=== PATIENT | female | born 2000 | race Caucasian/White ===

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

== ENCOUNTER 2020-01-25 16:07 | Emergency (ER) | payer OTHER ==
[2020-01-25 16:15] VITALS: BP 113/70
[2020-01-25 16:53] LABS: BILIRUBIN,URINE NEGATIVE (NEGATIVE); GLUCOSE, URINE (UA) NEGATIVE (NEGATIVE); KETONES,URINE (UA) NEGATIVE (NEGATIVE); LEUKOCYTE ESTERASE, URINE NEGATIVE (NEGATIVE); NITRITE,URINE NEGATIVE (NEGATIVE); OCCULT BLOOD,URINE NEGATIVE (NEGATIVE); PH,URINE 6.5 PH (5.0-7.5); PROTEIN,URINE NEGATIVE (NEGATIVE); UROBILINOGEN,URINE 0.2 (NORMAL) E.U./dL (NORMAL)
--- NOTE | 2020-01-25 16:54 | ED Physician Documentation ---
PD HPI FEMALE - Stated complaint Stated Complaint: FEMALE - Chief complaint Chief Complaint: Abd Pain - History obtained from History obtained from: Patient - History of Present Illness Timing - onset: How many weeks ago (2) Timing - details: Gradual onset Pain level max: 8 Pain level max: 2 Associated symptoms: Pelvic pain, Vaginal discharge. No: Fever, Urinary frequency Contributing factors: No: , control - Additional information Additional information: 20-year-old female presents to the emergency department with chief complaint of intermittent pelvic pain mostly during sexual activity. Patient denies fevers dysuria, hematuria. She is sexually active with one male partner but denies condom use. She does endorse some pelvic vaginal discharge clear to white in nature.She has an IUD in place and is unsure if she can still feel the strings. 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 HEENT: None Psych: None Musculoskeletal: None Derm: None - Past Surgical History Past Surgical History: No - Present Medications Home Medications: Ambulatory Orders Medication Instructions Recorded Confirmed Cefdinir 300 mg PO BID #20 capsule 01/06/20 - Allergies Allergies/Adverse Reactions: Allergies Allergy/AdvReac Type Severity Reaction Status Date / Time No Known Drug Allergies Allergy Verified 01/25/20 16:13 - Social History Does the pt smoke?: No Smoking Status: Former smoker Does the pt drink ETOH?: No Does the pt have substance abuse?: No - Immunizations Immunizations are current?: Yes - POLST Patient has POLST: No PD ED PE NORMAL - Female Female : Other (IUD strings seen exiting the cervix. Large amount of thin white secretions in vault. No CMT. No adnexal tenderness.) Results - Vitals Vitals: Vital Signs - 24 hr 01/25/20 16:13 Temperature 36.6 C Heart Rate 69 Respiratory 18 Rate Blood Pressure 113/70 O2 Saturation 98 Oxygen O2 Source Room air - Labs Labs: Microbiology 01/25/20 17:33 Wet Prep - Final Cervix Laboratory Tests 01/25/20 16:38 Urine Color YELLOW Urine Clarity CLEAR Urine pH 6.5 Ur Specific [place] 1.025 Urine Protein NEGATIVE Urine Glucose (UA) NEGATIVE Urine Ketones NEGATIVE Urine Occult Blood NEGATIVE Urine Nitrite NEGATIVE Urine Bilirubin NEGATIVE Urine Urobilinogen 0.2 (NORMAL) Ur Leukocyte Esterase NEGATIVE Ur Microscopic Review NOT INDICATED Urine Culture Comments NOT INDICATED Urine HCG, Qual NEGATIVE PD MEDICAL DECISION MAKING - ED course Complexity details: reviewed results, re-evaluated patient, d/w patient ED course: 20-year-old female comes to the emergency department with chief complaint of dyspareunia after sex and some vaginal discharge for the last few weeks. - Pelvic exam reveals moderate amount of thin white discharge in the vault. No cervical motion tenderness or adnexal tenderness. IUD strings are seen exiting the pelvis. - Them is not consistent with PID. However given history of unprotected sex I am electing to treat empirically for chlamydia gonorrhea here in the emergency department with ceftriaxone and azithromycin. GC is pending. Her wet prep is negative. - No pelvic pain was elicited on the bimanual pelvic exam therefore will defer imaging today. I recommended very close follow-up with a primary care provider for further evaluation. Patient was advised that she should abstain from sex for at least 1 week and her partner should be tested and treated before they resume sexual activity. Departure - Departure Disposition: 01 Home, Self Care Clinical Impression: Pelvic pain, Vaginal discharge Condition: Stable Instructions: STD Sx Women Teen Comments: [facility] your pelvic exam shows a lot of thin white vaginal discharge. I am concerned that this could be a sexually transmitted disease. Therefore we have treated you empirically today in the emergency department with ceftriaxone and azithromycin. Please a abstain from any sexual activity until your partners tested and treated.The IUD strings were seen exiting your cervix so I am not concerned about misplacement of the IUD. Please schedule close follow-up with your primary care doctor if the pain persist she may be interested in ordering a pelvic ultrasound but that is not indicated today.
[2020-01-25 16:55] LABS: CLARITY,URINE CLEAR (CLEAR); HCG UR QUAL NEGATIVE
[2020-01-25] MEDS ORDERED: LIDOCAINE 1% 2 ML VIAL MC ONE (17:35)
[2020-01-25] MEDS ORDERED: cefTRIAXone 250 MG VIAL IM STA (17:35)
[2020-01-25] MEDS ORDERED: AZITHROMYCIN 100 MG/5 ML SYRINGE PO STA (17:35)
[2020-01-25] MEDS ORDERED: AZITHROMYCIN 250 MG TABLET PO STA (17:48)
[2020-01-25 21:29] LABS: TRICHOMONAS VAGINALIS DNA NEGATIVE (NEGATIVE)
== END 2020-01-25 18:11 | disposition home or self-care (01) ==
LOC: ED 16:07
DX: R10.2 Pelvic and perineal pain (principal); N89.8 Other specified noninflammatory disorders of vagina; Z97.5 Presence of (intrauterine) contraceptive device; Z87.891 Personal history of nicotine dependence
CPT/HCPCS: 81003; 81025; 87210; 87491; 87591; 87661; 96372; 99281; 99283; A9270; 81001; 87086

== ENCOUNTER 2021-01-22 09:09 | Emergency (ER) | payer OTHER ==
[2021-01-22 09:54] LABS: BILIRUBIN,URINE NEGATIVE (NEGATIVE); GLUCOSE, URINE (UA) NEGATIVE (NEGATIVE); KETONES,URINE (UA) NEGATIVE (NEGATIVE); LEUKOCYTE ESTERASE, URINE NEGATIVE (NEGATIVE); NITRITE,URINE NEGATIVE (NEGATIVE); OCCULT BLOOD,URINE NEGATIVE (NEGATIVE); PROTEIN,URINE NEGATIVE (NEGATIVE); UROBILINOGEN,URINE 0.2 (NORMAL) E.U./dL (NORMAL)
[2021-01-22 09:56] LABS: CLARITY,URINE CLEAR (CLEAR); HCG UR QUAL NEGATIVE
[2021-01-22 10:48] LABS: BASOPHILS % (AUTO) 0.5 %; EOSINOPHILS # (AUTO) 0.3 10^3/uL (0.0-0.7); HCT - HEMATOCRIT 41.6 % (37.0-47.0); HGB - HEMOGLOBIN 14.1 g/dL (12.0-16.0); LYMPHOCYTES # (AUTO) 2.2 10^3/uL (1.5-3.5); LYMPHOCYTES % (AUTO) 25.8 %; MEAN CORPUSCULAR HEMOGLOBIN 29.9 pg (27.0-31.0); MEAN CORPUSCULAR HGB CONC 33.9 g/dL (32.0-36.0); MEAN CORPUSCULAR VOLUME 88.1 fL (81.0-99.0); MEAN PLATELET VOLUME 11.3 fL (7.9-10.8); MONOCYTES # (AUTO) 0.5 10^3/uL (0.0-1.0); MONOCYTES % (AUTO) 5.7 %; NEUTROPHILS # (AUTO) 5.6 10^3/uL (1.5-6.6); NEUTROPHILS % (AUTO) 64.7 %; PLT - PLATELET COUNT 287 10^3/uL (130-450); RED BLOOD COUNT 4.72 10^6/uL (4.20-5.40); RED CELL DISTRIBUTION WIDTH 12.4 % (12.0-15.0); WHITE BLOOD COUNT 8.6 x10^3/uL (4.8-10.8)
[2021-01-22 11:01] LABS: ALBUMIN 4.3 g/dL (3.2-5.5); ALBUMIN/GLOBULIN RATIO 1.2 (1.0-2.2); BILIRUBIN,TOTAL 0.6 mg/dL (0.2-1.0); CALCIUM 9.4 mg/dL (8.5-10.3); CREATININE 0.6 mg/dL (0.4-1.0); POTASSIUM 3.9 mmol/L (3.5-5.0); TOTAL PROTEIN 7.9 g/dL (6.7-8.2)
[2021-01-22 12:22] VITALS: BP 118/53
--- NOTE | 2021-01-22 12:27 | ED Physician Documentation ---
History of Present Illness - Stated complaint Stated Complaint: ABD PX - Chief complaint Chief Complaint: Abd Pain - Additonal information Additional information: 21-year-old female presents the emergency department for evaluation of mid abd ominal pain that woke her up at about 12:45 AM. She reports that it was cramping but nonradiating. It was severe for a few hours but went away. No fevers or vomiting. Last bowel movement yesterday and was normal for patient. Since then the pain has mostly improved though she does feel somewhat bloated. No pertinent past medical history. No pertinent past surgical history. She does smoke daily. No alcohol use. Review of Systems Constitutional: denies: Fever, Chills Eyes: reports: Reviewed and negative Ears: reports: Reviewed and negative Nose: reports: Reviewed and negative Throat: reports: Reviewed and negative Cardiac: reports: Reviewed and negative Respiratory: reports: Reviewed and negative GI: reports: Abdominal Pain, Nausea. 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 : None HEENT: None Psych: None Musculoskeletal: None Derm: None - Past Surgical History Past Surgical History: No - Present Medications Home Medications: Ambulatory Orders Medication Instructions Recorded Confirmed polyethylene glycoL 3350 [Miralax] 17 gm PO DAILY PRN #1 bottle 01/22/21 - Allergies Allergies/Adverse Reactions: Allergies Allergy/AdvReac Type Severity Reaction Status Date / Time No Known Drug Allergies Allergy Verified 01/22/21 09:27 - Social History Does the pt smoke?: No Smoking Status: Never smoker Does the pt drink ETOH?: No Does the pt have substance abuse?: No - Immunizations Immunizations are current?: Yes - POLST Patient has POLST: No PD ED PE EXPANDED - General General: Alert, No acute distress, Well developed/nourished - Cardiac Cardiac: Regular Rate, Regular Rhythm, Radial strong equal, Prolonged cap refill - Respiratory Respiratory: Clear to ausultation cierra. No: Distress, Labored - Abdomen Abdomen: Normal Bowel sounds, Other (Unable to elicit abdominal tenderness on exam. Negative Mina's negative McBurney's.). No: Tender to palpation - Derm Derm: Normal color, Warm and dry. No: Rash Results - Vitals Vitals: Vital Signs - 24 hr 01/22/21 01/22/21 09:24 12:21 Temperature 36.6 C 37.2 C Heart Rate 72 56 L Respiratory 16 16 Rate Blood Pressure 126/51 L 118/53 L O2 Saturation 98 100 Oxygen O2 Source Room air - Labs Labs: Laboratory Tests 01/22/21 01/22/21 01/22/21 09:30 10:31 10:31 WBC 8.6 RBC 4.72 Hgb 14.1 Hct 41.6 MCV 88.1 MCH 29.9 MCHC 33.9 RDW 12.4 Plt Count 287 MPV 11.3 H Neut # (Auto) 5.6 Lymph # (Auto) 2.2 [place] # (Auto) 0.5 Eos # (Auto) 0.3 Baso # (Auto) 0.0 Absolute Nucleated RBC 0.00 Nucleated RBC % 0.0 Sodium 135 Potassium 3.9 Chloride 102 Carbon Dioxide 25 Anion Gap 8.0 BUN 13 Creatinine 0.6 Estimated GFR (MDRD) 126 Glucose 89 Calcium 9.4 Total Bilirubin 0.6 AST 26 ALT 34 Alkaline Phosphatase 59 Total Protein 7.9 Albumin 4.3 Globulin 3.6 Albumin/Globulin Ratio 1.2 Lipase 23 Urine Color YELLOW Urine Clarity CLEAR Urine pH 7.0 Ur Specific [place] 1.020 Urine Protein NEGATIVE Urine Glucose (UA) NEGATIVE Urine Ketones NEGATIVE Urine Occult Blood NEGATIVE Urine Nitrite NEGATIVE Urine Bilirubin NEGATIVE Urine Urobilinogen 0.2 (NORMAL) Ur Leukocyte Esterase NEGATIVE Ur Microscopic Review NOT INDICATED Urine Culture Comments NOT INDICATED Urine HCG, Qual NEGATIVE - Rads (name of study) ABD KUB Radiology: Final report received PD MEDICAL DECISION MAKING - ED course Complexity details: reviewed results, re-evaluated patient, considered differential, d/w patient ED course: This is a very well-appearing 21-year-old female that presented to the emergency department for evaluation of mid abdominal pain that was cramping like and lasted for several hours early in the a.m. At this time she is free of abdominal pain. Screening labs show no significant abnormality. No leukocytosis no findings of infection in the urine and unremarkable liver function tests. On physical exam I was unable to elicit any abdominal tenderness. Certainly no peritoneal signs negative Mina's and negative McBur anup's. Patient is concerned that she may be constipated she feels bloated. A single view KUB was obtained that does show an Unremarkable air bowel gas pattern. We did discuss the possibility of obtaining CT scanning to rule out more occult process such as appendicitis but given unremarkable vitals clinical exam as well as labs that was deferred today. I will recommend short course of MiraLAX to see if improved defecation improve symptoms. Emergent return precautions discussed. Departure - Departure Disposition: Home, Self Care Clinical Impression: Abdominal pain Qualifiers: Abdominal location: unspecified location Qualified Code(s): R10.9 - Unspecified abdominal pain Condition: Stable Record reviewed to determine appropriate education?: Yes Instructions: Abdominal Pain Follow-Up: [facility] [Primary Care Provider] - Prescriptions: polyethylene glycoL 3350 [Miralax] 17 gm PO DAILY PRN #1 bottle PRN Reason: Constipation Comments: Edison hadley were seen in the emergency department today for mid abdominal pain that began very early this morning. Today your screening labs are essentially unremarkable. As we discussed at the bedside your clinical symptoms are not consistent with a more worrisome abdominal process such as a problem with your gallbladder or a bowel obstruction. The x-ray of your abdomen did not show anything worrisome however mild constipation may be causing your symptoms. I do recommend that you take MiraLAX once a day until he have 2-3 watery bowel movements. If your symptoms are worsening despite the MiraLAX, you develop fevers have a return of severe pain or vomiting please return to the ER. At that point we would proceed with CAT scan
--- NOTE | 2021-01-22 12:32 | XRAY Report ---
PROCEDURE: Abdomen 1 View X-Ray INDICATIONS: mid abdomianl pain; ? constipation TECHNIQUE: 1 view of the abdomen were acquired. COMPARISON: None FINDINGS: Surgical changes and devices: Midline intrauterine device noted. Bowel: No pneumoperitoneum. The bowel gas pattern is normal. Soft tissues: No masses; visualized solid organ contours appear normal in size. No suspicious abdom inal calcifications. Bones: No suspicious bony abnormalities. IMPRESSION: Unremarkable nonobstructive bowel gas pattern. Reviewed by: Deep Simms MD on 01/22/2021 11:31 AM BERENICE Approved by: Deep Simms MD on 01/22/2021 11:31 AM BERENICE Station ID: [id number]
== END 2021-01-22 12:52 | disposition home or self-care (01) ==
LOC: ED 09:09
DX: R10.9 Unspecified abdominal pain (principal)
CPT/HCPCS: 36415; 80053; 81001; 81003; 81025; 83690; 85025; 87086; 99283; 99284